=== PATIENT | male | born 1950 | race Caucasian/White ===

== ENCOUNTER 2018-10-17 09:16 | Outpatient (CLI) | payer MEDICARE, SELFPAY ==
[2018-10-17 10:30] LABS: Hemoglobin A1C 6.3 % (4.5-6.2)
[2018-10-17 12:11] LABS: Anion Gap 9.3 mmol/L (3-11); BUN 12 mg/dL (7-18); CO2 28.7 mmol/L (21.0-32.0); CREATININE 0.87 mg/dL (0.70-1.30); Calcium 9.3 mg/dL (8.5-10.1); Chloride 102 mmol/L (98-107); Glucose 130 mg/dL (70-100); Potassium 4.2 mmol/L (3.5-5.1); Sodium 140 mmol/L (136-145)
== END 2018-10-17 09:36 ==
PROVIDERS: PCP Nurse Practitioner Family; Visit Provider Nurse Practitioner Family
DX: R73.01 Impaired fasting glucose (principal); I10 Essential (primary) hypertension
CPT/HCPCS: 36415; 80048; 83036

== ENCOUNTER 2019-04-24 10:52 | Outpatient (CLI) | payer MEDICARE, SELFPAY ==
--- NOTE | 2019-04-24 09:30 | DI.RAD_ITS ---
SYMPTOM/DIAGNOSIS: DORSALGIA M54.9, PARESTHESIAS BILAT HANDS R20.2 CERVICAL SPINE: 04/24 Six views were obtained. There is loss of height of intervertebral disc spaces throughout the cervical region. There is a mild upper cervical kyphosis. There are prominent hypertrophic degenerative changes of the end plates and facet joints. No fracture identified. Neural foramina are not ideally visualized but are likely narrowed at multiple levels bilaterally sparing C2-3 No evidence of fracture CONCLUSION: Severe degenerative changes of the cervical spine.
--- NOTE | 2019-04-24 09:30 | DI.RAD_ITS ---
SYMPTOM/DIAGNOSIS: CHRONIC THORACIC BACK PAIN M54.9, M54.6 OTHER CHRONIC PAIN G89.29 THORACIC SPINE: 04/24 Three views were obtained. There is a minimal biconvex thoracolumbar scoliosis Intervertebral disc spaces are fairly well maintained. No fracture seen. Minimal hypertrophic spurring of the vertebral end plates noted throughout the thoracic region. CONCLUSION: Mild DJD, no other specific finding.
== END 2019-04-24 11:12 ==
PROVIDERS: PCP Nurse Practitioner Family; Visit Provider Nurse Practitioner Family
DX: G89.29 Other chronic pain (principal); M54.6 Pain in thoracic spine; R20.2 Paresthesia of skin; M54.2 Cervicalgia; M47.813 Spondylosis without myelopathy or radiculopathy, cervicothoracic region
CPT/HCPCS: 72050; 72072

== ENCOUNTER 2019-05-05 11:40 | Outpatient (CLI) | payer MEDICARE, SELFPAY ==
[2019-05-05 12:56] LABS: Absolute Basophil Count 0.02 k/cumm (0.0-0.2); Absolute Eosinophil Count 0.06 k/cumm (0.0-0.7); Absolute Monocyte Count 0.56 k/cumm (0.11-0.7); Absolute Neutrophil Count 2.27 k/cumm (1.2-6.7); Basophils % 0.4; Eosinophils % 1.2; HCT 46.6 % (40.0-50.0); HGB 15.7 g/dL (13.5-17.5); Lymphocytes % 41.9; Mean Corp. HGB Concentration 33.7 g/dL (32.0-36.0); Mean Corpuscular Hemoglobin 32.4 pg (27.0-33.0); Mean Corpuscular Volume 96.3 fL (80-95); Mean Platelet Volume 10.4 fL (8.0-11.0); Monocytes % 11.2; Neutrophils % 45.3; Platelet Count 201 x1000/uL (130-400); RBC 4.84 m/cumm (4.50-6.00); RBC Distribution Width 13.3 % (11.8-14.1); White Blood Cell Count 5.01 k/cumm (4.4-10.8)
[2019-05-05 13:42] LABS: TSH (W/Ref FT4) 1.46 uIU/mL (0.358-3.74); Vitamin B12 437 pg/mL (193-986)
[2019-05-06 13:59] LABS: Albumin 56.9 % (55.8-66.1); Total Protein 7.2 g/dl (6.3-8.2)
== END 2019-05-05 12:00 ==
PROVIDERS: PCP Nurse Practitioner Family; Visit Provider Nurse Practitioner Family
DX: R20.2 Paresthesia of skin (principal)
CPT/HCPCS: 36415; 82607; 84165; 84443; 85025

== ENCOUNTER → 2019-05-08 09:47 | Outpatient (BNVA) | payer MEDICARE, SELFPAY | PROVIDERS: Visit Provider Orthopaedic Surgery | DX: Z47.1 Aftercare following joint replacement surgery (principal); Z96.653 Presence of artificial knee joint, bilateral | CPT/HCPCS: 99213 ==

== ENCOUNTER 2020-04-22 21:21 | Outpatient (REF) | payer MEDICARE, SELFPAY ==
[2020-04-22 16:43] LABS: Anion Gap 8.2 mmol/L (3-11); BUN 18 mg/dL (7-18); CO2 25.8 mmol/L (21.0-32.0); CREATININE 1.11 mg/dL (0.70-1.30); Calcium 9.4 mg/dL (8.5-10.1); Chloride 103 mmol/L (98-107); Glucose 97 mg/dL (74-106); Potassium 4.6 mmol/L (3.5-5.1); Sodium 137 mmol/L (136-145)
== END 2020-04-22 21:41 ==
LOC: LBN 21:21
PROVIDERS: PCP Nurse Practitioner Family; Visit Provider Nurse Practitioner Family
DX: I10 Essential (primary) hypertension (principal)
CPT/HCPCS: 80048

== ENCOUNTER 2021-09-07 02:36 | Outpatient (CLI) | payer MEDICARE, SELFPAY ==
[2021-09-07 10:34] LABS: Abs Immature Grans 0.01 10^3/uL (0.0-0.06); Absolute Basophil Count 0.04 10^3/uL (0.0-0.2); Absolute Eosinophil Count 0.03 10^3/uL (0.0-0.7); Absolute Lymphocyte Count 1.88 10^3/uL (1.2-3.4); Absolute Monocyte Count 0.78 10^3/uL (0.1-0.8); Absolute Neutrophil Count 3.26 10^3/uL (1.2-6.7); Basophils % 0.7; Eosinophils % 0.5; HCT 45.6 % (40.0-50.0); HGB 14.9 g/dL (13.5-17.5); Immature Grans % 0.2; Lymphocytes % 31.3; MCH 30.8 pg (27.0-33.0); MCHC 32.7 % (32.0-36.0); MCV 94.4 fL (80-95); MPV 9.9 fL (8.0-11.0); Neutrophils % 54.3; Nucleated RBC 0 %; Platelet Count 204 10^3/uL (130-400); RBC 4.83 10^6/uL (4.36-5.78); RDW 13.2 % (11.8-14.1); RDW-SD 46.6 fL
[2021-09-07 11:05] LABS: BUN 20 mg/dL (7-18); CREATININE 1.1 mg/dL (0.70-1.30); Calcium 8.8 mg/dL (8.5-10.1); Glucose 92 mg/dL (74-106)
[2021-09-07 11:06] LABS: Anion Gap 10.9 mmol/L (3-11); CO2 27.1 mmol/L (21.0-32.0); Chloride 104 mmol/L (98-107); Potassium 4.6 mmol/L (3.5-5.1); Sodium 142 mmol/L (136-145)
== END 2021-09-07 02:37 | disposition home or self-care (01) ==
LOC: LBO 02:36
PROVIDERS: PCP Nurse Practitioner Family; Visit Provider Nurse Practitioner Family
DX: I10 Essential (primary) hypertension (principal); Z86.2 Personal history of diseases of the blood and blood-forming organs and certain disorders involving the immune mechanism; Z51.81 Encounter for therapeutic drug level monitoring
CPT/HCPCS: 36415; 80048; 85025

== ENCOUNTER 2021-09-27 01:54 | Outpatient (CLI) | payer MEDICARE, SELFPAY ==
[2021-09-27] MEDS: Omnipaque 350 MG/ML 100 ML BTL IJ (09:27)
[2021-09-27] MEDS: Normal Saline Flush 10 ML SYR IVP (09:29)
[2021-09-27] MEDS: Breeza Beverage 473 ML BTL PO ×2 (09:30→09:31)
[2021-09-27] MEDS: Omnipaque 350 MG/ML 50 ML BTL PO (09:31)
--- NOTE | 2021-09-27 09:35 | DI.CT_ITS ---
Exam(s) CT ABDOMEN PELVIS W EXAM: CT ABDOMEN PELVIS W CLINICAL HISTORY: RLQ - MID ABD PAIN, R10.31 TECHNIQUE: Imaging Protocol: Axial computed tomography images with coronal and sagittal reformatted images were created and reviewed CONTRAST MATERIAL: Intravenous: Omnipaque 350 Contrast volume: 100 ml Oral: Yes COMPARISON: No exams were available for comparison FINDINGS: ABDOMEN: Lung Bases: Dependent atelectasis. Coronary artery calcification. Liver: Fatty infiltration of the liver. No measurable mass. Portal, Superior Mesenteric, and Splenic Veins: Unremarkable. Gallbladder and Biliary Tract: No radiodense calculus or dilation. Pancreas: Normal density, no abnormal calcifications or inflammatory process. Spleen: Normal. There is a benign round calcification in the spleen. Adrenals: No masses seen. Kidneys: Normal size, contour and axis. Bilateral nephrolithiasis. No hydronephrosis. There is a 1. 6 cm simple cyst in the superior pole of the right kidney. No follow-up is recommended. Abdominal Aorta: Abdominal portion non-dilated. Atherosclerosis. Bowel: No obstruction or bowel wall thickening. No appendicitis. There is diverticulosis of the desc ending and sigmoid colon, but no evidence of acute diverticulitis. There is a moderate size left ing uinal hernia. A short segment of the wall of the sigmoid colon is seen within the neck of the hernia . No obstruction is present. Peritoneal Cavity: No ascites, collection or mesenteric inflammatory response. No free air. Lymph Nodes: Within normal limits. Bones: Within normal limits for the patient's age. There is L5 spondylolysis and grade 1 spondylolis thesis of L5 on S1. Soft Tissues: There is a small fat containing umbilical hernia. PELVIS: Bladder: Symmetric distention, no gross wall thickening. Reproductive Organs: The prostate gland is enlarged and impinges upon the base of the urinary bladder . Lymph Nodes: Within normal limits. Bones: Within normal limits for the patient's age. IMPRESSION: 1. No acute abdominal or pelvic process. 2. Moderate size left inguinal hernia containing a short segment of the wall of the sigmoid colon. N o evidence of obstruction. 3. Colonic diverticulosis, but no evidence of acute diverticulitis. 4. Bilateral nephrolithiasis. No hydronephrosis. 5. Fatty infiltration of the liver. RADIATION DOSE DELIVERED: Total DLP DATA REPOSITORY: All CT scans at this facility are submitted to the National Radiology Data Registry (NRDR) Dose Index Registry (DIR) with the [employer] (ACR). RADIATION OPTIMIZATION: All CT scans at this facility use at least one of these dose optimization te chniques: automated exposure control; mA and/or kV adjustment per patient size (includes targeted exa ms where dose is matched to clinical indication); or iterative reconstruction.
== END 2021-09-27 02:14 ==
PROVIDERS: PCP Nurse Practitioner Family; Visit Provider Nurse Practitioner
DX: R10.31 Right lower quadrant pain (principal); K76.0 Fatty (change of) liver, not elsewhere classified; N20.0 Calculus of kidney; K57.32 Diverticulitis of large intestine without perforation or abscess without bleeding; K40.90 Unilateral inguinal hernia, without obstruction or gangrene, not specified as recurrent
CPT/HCPCS: 74177; J3490; Q9967

== ENCOUNTER → 2021-10-18 07:27 | Outpatient (BNVA) | payer MEDICARE, SELFPAY | PROVIDERS: PCP Nurse Practitioner Family; Referring Provider Nurse Practitioner Family; Visit Provider Surgery | DX: K40.90 Unilateral inguinal hernia, without obstruction or gangrene, not specified as recurrent (principal) | CPT/HCPCS: 99203; 99214 ==

== ENCOUNTER 2021-10-18 15:01 | Outpatient (REF) | payer MEDICARE, SELFPAY ==
[2021-10-18 09:27] LABS: Source Nasal/Nares
[2021-10-18 13:07] LABS: COVID-19 PCR Negative (Negative)
== END 2021-10-18 15:02 | disposition home or self-care (01) ==
LOC: LBN 15:01
PROVIDERS: PCP Nurse Practitioner Family; Visit Provider Surgery
DX: Z20.822 Contact with and (suspected) exposure to COVID-19 (principal); Z01.818 Encounter for other preprocedural examination
CPT/HCPCS: 87635

== ENCOUNTER 2021-10-20 10:55 | Day surgery (SDC) | payer MEDICARE, SELFPAY ==
[2021-10-20] VITALS (8 sets, daily range): BP systolic 109–141; BP diastolic 71–91; PULSE 58–75; RESP 12–16; TEMP 36.3–36.5; O2SAT 94–98; BMI 28.5
--- NOTE | 2021-10-20 10:36 | W.ANESPRE ---
General Info Date of Service Date Performed: 10/20/21 Height: 5 ft 9.5 in Weight: 89.074 kg Body Mass Index (BMI): 28.5 Surgical Procedure: Operation Date: 10/20/21 12:10 Proposed Procedures Side Surgeon p Herniorrhaphy Inguinal w/Mesh Left Lucrecia Carlisle MD Meds Allergies and Home Medications Allergies Allergy/AdvReac Type Severity Reaction Status Date / Time morphine AdvReac Severe Agitation, Verified 10/20/21 11:02 hyper Home Medication Medication Instructions Recorded hydrocortisone 30 gm TOPICAL DAILY PRN PRN 04/22/13 ibuprofen 400 mg PO PRN tab 09/03/13 aspirin [Aspir-81] 81 mg PO DAILY tab 09/30/14 multivitamin 1 ea PO DAILY 01/24/16 amoxicillin 500 mg capsule 2,000 mg PO ONCE #8 cap 12/25/19 lisinopril 10 mg tablet 10 mg PO DAILY #90 tab-cap 07/25/21 Current Visit Medications: Current Medications Generic Name Dose Route Start Last Admin Trade Name Freq PRN Reason Stop Dose Admin Acetaminophen 1,000 mg 10/20/21 06:00 Acetaminophen 500 Mg Tab PO 10/20/21 16:00 PREOP MAINE Celecoxib 200 mg 10/20/21 06:00 Celecoxib 200 Mg Cap PO 10/20/21 16:00 PREOP MAINE Gabapentin 600 mg 10/20/21 06:00 Gabapentin 300 Mg Cap PO 10/20/21 16:00 PREOP MAINE Ringer's Solution 1,000 mls @ 80 mls/hr 10/20/21 06:00 IV 11/18/21 23:59 INFUSION MAINE Cefazolin Sodium/Dextrose 2 gm in 50 mls @ 100 mls/hr 10/20/21 06:00 Ancef Duplex IVPB 10/20/21 16:00 PREOP MAINE IV Miscellaneous Supplies 1 each 10/20/21 06:00 Iv Access IV 11/18/21 23:59 DIRECTED MAINE Sodium Chloride 0 ml 10/20/21 06:00 Normal Saline Flush 10 Ml Syr IV 11/18/21 23:59 PRN PRN Sodium Chloride 0 ml 10/20/21 06:00 Normal Saline 10 Ml Vial IJ 11/18/21 23:59 DIRECTED PRN Sterile Water 0 ml 10/20/21 06:00 Water,Injection,Sterile 10 Ml Vial IJ 11/18/21 23:59 DIRECTED PRN [facility] Active Problems Active Problems: Problem Status Onset Code Left inguinal hernia K40.90 Adult BMI > 30 IFG (impaired fasting glucose) R73.01 Unspecified essential hypertension I10 Medical History Medical History Hyperlipidemia (03/20/08) PCEq risk 18.1% LDL baseline 127; declines statins 09/2017 labwork: 10-year ASCVD risk = ~16.4% --> pt declines statins Osteoarthritis of knee Total right knee replacement done by Dr. Osmel Moreira 05/05/2013. Removal of tibial plateau isacc at the same time for previous surgery. Rosacea (09/03/13) Seborrheic dermatitis of scalp (01/07/14) Tubular adenoma of colon (01/26/16) Ascending colon Surgical History Surgical History Colonoscopy - IV Sedation (01/26/16) Sandhya Carlisle Pathology-Fragments of tubular adenona History of total left knee replacement (TKR) (12/24/95) History of total right knee replacement (TKR) (05/05/13) Dr. Moreira Tobacco Smoking/Tobacco Use Status: Never Passive smoking exposure: No Alcohol Alcohol Intake: never Substance Use Substance use: Never Substance use type: does not use Vital Signs and Lab Results Lab Results Blood Type / Crossmatch: No Data to Display Complete Blood Count: No Data to Display Complete Metabolic Panel: No Data to Display Liver Function Panel: No Data to Display Coagulation Panel: No Data to Display Cardiac Panel: No Data to Display Arterial Blood Gas: No Data to Display Venous Blood Gas: No Data to Display Pancreas Panel: No Data to Display Thyroid Panel: No Data to Display Infectious Disease: Coronavirus (COVID-19)(PCR) Negative (Negative) 10/18/21 08:25 10/18/21 Coronavirus 2019 Source Nasal/Nares 10/18/21 08:25 10/18/21 Blood Cultures: No Data to Display Toxicology Panel: No Data to Display Anesthesia Assessment and Plan Anesthesia History Personal History: PONV Family History: No Family History of Anesthesia Complications Exercise Tolerance Exercise Tolerance: Metabolic Equivalents>4 Pertinent Negatives Pertinent Negatives: No Symptoms of GERD, No Major Cardiovascular Symptoms or Complaints, No Major Pulmonary Symptoms or Complaints and No History of CVA/TIA Cardiac & Pulmonary Exam Cardiac Exam: Normal S1/S2 Heart Sounds Pulmonary Exam: Clear Bilateral Breath Sounds Implantable Cardiac Device Does patient have a Pacemaker or an ICD?: No Airway Exam Known Difficult Airway: No Mallampati Class: 2 Mouth Opening: Normal (> 3cm) Thyromental Distance: Greater than 3 cm Neck Range of Motion: Full ROM Neck Circumference: Normal Teeth Condition: Normal Dentition ASA Classification ASA Score: ASA 2 Emergency Case?: No NPO Status NPO Status: NPO Clears >2 hours, Solids >8 hours Anesthesia Plan Resuscitation Status: Full Code Anesthesia Technique: General Anesthesia Airway Planned: LMA Pain Management: Surgeon and patient request nerve block Monitors Used: Standard Monitors
[2021-10-20] MEDS: Lactated Ringers 1,000 ML 80 ML IV (11:24)
[2021-10-20] MEDS: Acetaminophen 500 MG TAB 1000 MG PO (11:29)
[2021-10-20] MEDS: Celecoxib 200 MG CAP PO (11:30)
[2021-10-20] MEDS: Gabapentin 300 MG CAP 600 MG PO (11:30)
[2021-10-20] MEDS: ceFAZolin 2 GM/50 ML BAG IVPB (11:54)
--- NOTE | 2021-10-20 12:11 | W.ANESNERVE ---
Nerve Block Single Injection Procedure Date and Time Date Performed: 10/20/21 Procedure Start: 12:02 Location Where Procedure Performed Procedure Location: Operating Room Procedure Stop: 12:10 Reason Performed: Postoperative Analgesia Requesting Provider: Lucrecia Carlisle Timeout Performed Timeout Performed: Yes Monitoring Used ECG, Blood Pressure, SpO2, ETCO2 and See EMR for corresponding vital signs Sterility Sterility: Hand Hygiene, Surgical Cap, Surgical Mask, Sterile Gloves and Chlorhexidine Sedation Given During Procedure Sedation Given (Indicate Dose Given): No Sedation given (under GA) Patient Mental Status Patient Mental Status: Performed under general anesthesia Nerve Block 1st Nerve Block: Laterality: Left Block Type: TAP Unilateral Needle / Catheter Used: 100mm SonoPlex II Local Anesthetic Bolus (Indicate Dose Given): Injected in 3-5ml increments after negative blood aspiration, Bupivacaine 0.25% Dose:: 10 and Exparel Dose:: 10 Additives (Indicate Dose Given): None Ultrasound: Sterile probe cover and gel used Ultrasound Image Saved?: Yes Nerve Stimulator: Not Used Paresthesia: None Procedure Tolerated: No Complications Procedure Outcome: Successful Performed By: Mila Ireland Supervised By: Sukhjinder Khalil
--- NOTE | 2021-10-20 12:52 | W.PM.DSUDISC ---
Discharge Plan Disposition Patient Disposition: HOME Condition: Good Discharge Details Reason For Visit: LIH repair Attending Provider: Lucrecia Carlisle Primary Care Provider: Gail Sy Home Meds and New Rx's Prescriptions: Continued lisinopril 10 mg tablet 10 mg PO DAILY Qty: 90 RF: 3 ibuprofen 200 MG tablet 400 mg PO PRN RF: 0 aspirin [Aspir-81] 81 MG tablet,delayed release (DR/EC) 81 mg PO DAILY RF: 0 amoxicillin 500 mg capsule 2,000 mg PO ONCE Qty: 8 RF: 0 hydrocortisone 30 GM cream 30 gm Topical DAILY PRN PRNRF: 0 multivitamin 1 EACH capsule 1 ea PO DAILY RF: 0 Discharge Instructions Additional Instructions: Activity at Home after surgery: 1. Make sure you walk outside at least 4 times per day 2. You should be able to climb a flight of stairs 3. No driving while in pain or taking pain medications 4. No strenuous activity or heavy lifting for 4 weeks (open surgery) Diet, Nutrition, & wound healin. Avoid alcohol until after you are recovered from your surgery 2. Make sure to eat plenty of lean protein (meat, fish, eggs, cottage cheese, beans) 3. Eat a variety of fruits and vegetables. Eat plenty of high fiber foods to avoid constipation. 4. Drink plenty of liquids to stay hydrated and avoid constipation Pain Medications: 1. Tylenol 650mg every 6 hours as needed and Ibuprofen 600 mg every 6 hours as needed. You may alternate between the 2 medications every 3 hours 2. If a narcotic has been prescribed take as directed only for breakthrough pain For Constipation: 1. Take Milk of Magnesia or MiraLax as needed for constipation Other: 1. You may shower daily. Do not scrub the incisions 2. Do not soak the incisions for 1 week 3. You may alternate ice and heat as needed for pain and swelling Wound Care: 1. Keep the incisions clean and dry Please call our office if you develop: 1. Fevers >101.5 2. Nausea or Vomiting 3. Worsening pain 4. Redness and thick discharge from the wounds If after hours please call the Hospital at and ask to speak to the on-call surgeon Referrals: Amanda Mccarty PA [[facility]IST] - 11/04/21 9:30 am Activity:: as above Remove Dressings/Wound Care:: Do Not Remove Diet:: As Tolerated Discharge Orders Discharge Orders: Discharge Order (Routine); Ordered 10/20/21 Ordered By: Lucrecia Carlisle
[2021-10-20] MEDS: Bupivacaine 0.25% Pres-Free 10 ML VIAL (12:55)
[2021-10-20] MEDS: Bupivacaine LIPOSOME/PF 133 MG/10 ML VIAL IJ (12:56)
--- NOTE | 2021-10-20 12:58 | ROE_ITS ---
Date of service: 10/20/21 Time of Service: 12:58 Operative Note Operative Note DATE OF PROCEDURE: 10/20/21 PRE-OP DIAGNOSIS: Left inguinal hernia POST-OP DIAGNOSIS: same (direct and indirect left inguinal hernia) PROCEDURE: Left inguinal hernia repair with mesh SURGEON: Lucrecia Carlisle PROGRAM DEVELOPMENT MANAGER: Amanda Mccarty ANESTHESIA TYPE: General LMA/ETT and Primary Nerve Block Refer to Anesthesia Record ESTIMATED BLOOD LOSS: 15 PATHOLOGY: none sent COMPLICATIONS: None Patient was transported to: same day Patient's condition: stable Implants: Bard Mesh- LOT- [id number] REF- [id number] Findings: Mr. Moreno is a pleasant 71-year-old gentleman with a left inguinal hernia for the last 4 months. He has pain when he is working in his workshop. He also has noted some gas buildup which causes discomfort. He had a CT scan done which showed a short segment of his sigmoid colon within the hernia defect. He is otherwise fairly healthy. We discussed the procedure using a pamphlet. I reviewed the procedure the mesh to be used as well as the complications. He will be Covid tested in the office today for his procedure on . Risks, benefits and complications have been reviewed. Complications include but are not limited to bleeding, infection, injury to vas, vessels and nerves, injury to bowel and adverse reaction to medications. Questions were entertained and answered to their satisfaction and they wished to proceed. Proceed with inguinal hernia repair with mesh I will ask anesthesia to do a TAP block to help with postoperative pain. Procedure Description: After informed consent was obtained the patient was taken to the operating room and placed in a supine position. Monitors and SCDs were applied and a timeout was done. The patient's name, date of , procedure type, procedure site, allergies to medications, preoperative antibiotic, and DVT prophylaxis were all reviewed. Fire risk was assessed. Next anesthesia did a tap block on the left side under ultrasound guidance. Please see their separate dictation. Once anesthesia was done the abdomen was prepped and draped in a sterile surgical fashion. 0.5% Marcaine mixed with exparel was injected into the dermis in the left lower quadrant. An incision was made with a 10 blade in the left lower quadrant. Dissection was done with cautery through the subcutaneous tissues and Hal's fascia down to the external oblique fascia. The external ring was identified and the external oblique fascia was opened sharply through the external ring. The cut fascia was grasped with hemostats the cord struct ures were identified and a Jose drain was placed around them. The ilioinguinal nerve was identified and cut. The cremasteric muscle was dissected away from the cord structures using both cautery and blunt dissection. A hernia sac was identified and removed from the cord structures using blunt dissection. The hernia sac was suture ligated and amputated. The remnant was pushed back into the peritoneum. 2 cord lipomas were removed carefully. A flat piece of mesh was then attached to the lacunar ligament using a 2-0 Prolene double armed suture. The mesh was secured laterally and medially with a 2-0 Prolene, with a running suture. The tails of the mesh were wrapped around the cord structures effectively cinching down the internal ring. Once the mesh was secured the tissues were irrigated with some normal saline. No bleeding was identified. The external oblique fascia was reapproximated using 2-0 Vicryl running suture. The Hal's fascia was reapproximated using interrupted 3-0 Vicryl. The dermis was reapproximated with a running 4-0 Vicryl. The skin was cleaned and dried and skin affix was applied. The patient was woken up and taken back to recovery in stable condition. There were no immediate complications. Sponge, instrument and needle counts were correct at the end of the case x2.
[2021-10-20] MEDS: Scopolamine 1 MG/3 DAYS PATCH TD (13:10)
--- NOTE | 2021-10-20 15:42 | W.ANESPOSTOP ---
Postoperative Evaluation Date, Time and Location Date Performed: 10/20/21 Time Performed: 15:42 Patient Location: Day Surgery Unit Vital Signs Most Recent Imported Vital Signs: Most Recent Vital Signs Temp Pulse Resp BP Pulse Ox 36.4 C L 65 16 133/72 98 10/20/21 14:20 10/20/21 14:20 10/20/21 14:20 10/20/21 14:20 10/20/21 14:20 Pain Score Most Recent Pain Score: Most Recent Pain Score Pain Level 0 10/20/21 14:20 Assessment Mental Status: Awake (Alert & Oriented to Patient Baseline) Airway and Respiratory Function: Patent airway with normal (patient baseline) respiratory exam Cardiovascular Function: Hemodynamically Stable Hydration Status: Adequately Hydrated Nausea & Vomiting: No Nausea or Vomiting Pain: Pt. Denies Any Pain Peripheral Nerve Block: Patient did not receive a nerve block
--- NOTE | 2021-10-20 15:57 | W.ANESPOSTOP ---
Postoperative Evaluation Date, Time and Location Date Performed: 10/20/21 Time Performed: 15:57 Patient Location: Day Surgery Unit Vital Signs Most Recent Imported Vital Signs: Most Recent Vital Signs Temp Pulse Resp BP Pulse Ox 36.4 C L 65 16 133/72 98 10/20/21 14:20 10/20/21 14:20 10/20/21 14:20 10/20/21 14:20 10/20/21 14:20 Most Recent Vital Signs Temp Pulse Resp BP Pulse Ox 36.4 C L 65 16 133/72 98 10/20/21 14:20 10/20/21 14:20 10/20/21 14:20 10/20/21 14:20 10/20/21 14:20 Pain Score Most Recent Pain Score: Most Recent Pain Score Pain Level 0 10/20/21 14:20 Assessment Mental Status: Awake (Alert & Oriented to Patient Baseline) Airway and Respiratory Function: Patent airway with normal (patient baseline) respiratory exam Cardiovascular Function: Hemodynamically Stable Hydration Status: Adequately Hydrated Nausea & Vomiting: No Nausea or Vomiting Pain: Pt. Denies Any Pain Peripheral Nerve Block: Regional nerve block not resolved at time of post operative discharge
== END 2021-10-20 14:45 | disposition home or self-care (01) ==
PROVIDERS: PCP Nurse Practitioner Family; Visit Provider Surgery
PROC: (CPT 49505; principal; 2021-10-20 12:00)
DX: K40.90 Unilateral inguinal hernia, without obstruction or gangrene, not specified as recurrent (principal); I10 Essential (primary) hypertension; R73.01 Impaired fasting glucose
CPT/HCPCS: 49505; 76942; C1781; J0690; J1100; J2405; J2704

== ENCOUNTER → 2021-11-08 08:17 | Outpatient (BNVA) | payer MEDICARE, SELFPAY | PROVIDERS: PCP Nurse Practitioner Family; Referring Provider Nurse Practitioner Family; Visit Provider Surgery | DX: Z12.11 Encounter for screening for malignant neoplasm of colon (principal); Z86.010 Personal history of colon polyps; Z48.815 Encounter for surgical aftercare following surgery on the digestive system ==

== ENCOUNTER 2021-12-05 03:00 | Outpatient (CLI) | payer MEDICARE, SELFPAY ==
[2021-12-05 10:07] LABS: Source Nasal/Nares
[2021-12-05 12:57] LABS: COVID-19 PCR Negative (Negative)
== END 2021-12-05 03:01 | disposition home or self-care (01) ==
LOC: LBO 03:01
PROVIDERS: PCP Nurse Practitioner Family; Visit Provider Surgery
DX: Z20.822 Contact with and (suspected) exposure to COVID-19 (principal)
CPT/HCPCS: 87635

== ENCOUNTER 2021-12-07 06:12 | Day surgery (SDC) | payer MEDICARE, SELFPAY ==
[2021-12-07 06:27] VITALS: BP 118/88; PULSE 92; RESP 16; TEMP 36.6; O2SAT 97
--- NOTE | 2021-12-07 06:27 | W.PREOPHP ---
Assessment and Plan Assessment and plan (1) Encounter for colonoscopy due to history of adenomatous colonic polyps: Status: Acute Assessment and plan: Porter is due for another colonoscopy. His last colonoscopy was in 2016 and he was noted to have an adenomatous polyp. Risks, benefits and complications were reviewed with him. We discussed the procedure as well as the prep. We also discussed COVID testing. Risks, benefits and complications have been reviewed. Complications include but are not limited to bleeding, pain, perforation, missed small lesion/polyp, sore throat, aspiration and adverse reaction to the medications. Questions were entertained and answered to their satisfaction and they wished to proceed. No guarantees were given or implied. Proceed with colonoscopy under sedation History of Present Illness Narrative: Porter is due for a colonoscopy. His last colonoscopy was in 2015 and he was noted to have an adenomatous polyp. Since his hernia repair he has not had any more bowel habit issues. He denies any melena, hematochezia or abnormal weight loss. He has no family history of colon cancer. he had no issues with anesthesia for his hernia. He has had no new health issues since I saw him. Review of Systems Cardiovascular Cardiovascular: Denies chest pain, Denies chest pain at rest, Denies irregular heart rhythm, Denies dyspnea and Denies dyspnea on exertion Respiratory Respiratory: Denies cough, Denies dyspnea and Denies dyspnea on exertion Gastrointestinal Gastrointestinal: Reports as per HPI, Denies dyspepsia and Denies heartburn Genitourinary Genitourinary: Denies dysuria, Denies urinary incontinence and Denies urinary urgency Endocrine Endocrine: Reports system reviewed and no additional complaints, except as documented Hematologic/Lymphatic Hematologic/Lymphatic: Denies easy bruising and Denies lymphadenopathy PFSH All Active Problems (Updated 12/07/21 @ 06:30 by Lucrecia Carlisle MD) Encounter for colonoscopy due to history of adenomatous colonic polyps (Acute) Unspecified essential hypertension (Chronic) FRS 21%; R>L IFG (impaired fasting glucose) (Chronic) Adult BMI > 30 (Chronic) Medical History (Updated 12/07/21 @ 06:30 by Lucrecia Carlisle MD) Hyperlipidemia (03/20/08) PCEq risk 18.1% LDL baseline 127; declines statins 09/2017 labwork: 10-year ASCVD risk = ~16.4% --> pt declines statins Left inguinal hernia s/p repair Osteoarthritis of knee Total right knee replacement done by Dr. Osmel Moreira 05/05/2013. Removal of tibial plateau isacc at the same time for previous surgery. Rosacea (09/03/13) Seborrheic dermatitis of scalp (01/07/14) Tubular adenoma of colon (01/26/16) Ascending colon Surgical History Colonoscopy - IV Sedation (01/26/16) Sandhya Carlisle Pathology-Fragments of tubular adenona History of total left knee replacement (TKR) (12/24/95) History of total right knee replacement (TKR) (05/05/13) Dr. 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 Current gender identity: male What type of physical activity do you participate in: walking and other Details: fernandez Frequency: daily Working smoke detector in home: Yes Fire extinguisher in home: Yes Carbon monox detector in home: Yes Additional Social history: Unable to asses [facility] Allergies and Home Medications Allergies Allergy/AdvReac Type Severity Reaction Status Date / Time morphine AdvReac Severe Agitation, Verified 12/07/21 06:19 hyper Home Medications Medication Instructions Recorded Confirmed Type hydrocortisone 30 gm TOPICAL DAILY PRN PRN 04/22/13 12/05/21 History ibuprofen 400 mg PO PRN tab 09/03/13 12/05/21 History aspirin [Aspir-81] 81 mg PO DAILY tab 09/30/14 12/07/21 History multivitamin 1 ea PO DAILY 01/24/16 12/07/21 History amoxicillin 500 mg capsule 2,000 mg PO ONCE #8 cap 12/25/19 12/07/21 Rx lisinopril 10 mg tablet 10 mg PO DAILY #90 tab-cap 07/25/21 12/07/21 Rx Exam Const General: healthy appearing and comfortable Resp Effort & Inspection: normal respiratory effort Auscultation: clear to auscultation bilaterally Cardio Rate: regular rate Rhythm: regular rhythm Heart Sounds: no click, no gallops and no murmurs
--- NOTE | 2021-12-07 06:30 | W.COLOREPORT ---
Colonoscopy Report Date of procedure: 12/07/21 Pre-op diagnosis general: Hx of colon polyps Post-op diagnosis procedure note: same (diverticulosis, internal hemorrhoids) Procedure: Colonoscopy with polypectomy Surgeon: Lucrecia Carlisle Anesthesia Type: General:No Airway (Sukhjinder Melo, ABHI) Estimated blood loss (mL): 3 Pathology: other (descending polyp, sigmoid polyp x2) Complications: None Disposition: same day Indications: Porter is due for another colonoscopy. His last colonoscopy was in 2016 and he was noted to have an adenomatous polyp. Risks, benefits and complications were reviewed with him. We discussed the procedure as well as the prep. We also discussed COVID testing. Risks, benefits and complications have been reviewed. Complications include but are not limited to bleeding, pain, perforation, missed small lesion/polyp, sore throat, aspiration and adverse reaction to the medications. Questions were entertained and answered to their satisfaction and they wished to proceed. No guarantees were given or implied. Proceed with colonoscopy under sedation Prep: Miralax/Dulcolax Procedure Start Time: 07:21 Procedure End Time: 07:48 Retraction Time: 18 minutes Findings: 3 small polyps mild descending and sigmoid diverticulosis internal hemorrhoids grade 1 Procedure Description: After informed consent was obtained the patient was taken to the procedure room and placed in a left decubitous position. Monitors were applied and a time out was done. The patients name, date of , procedure, allergies to medications and metal in their body was reviewed. The patient was then sedated. Once sedated and comfortable a rectal exam was done. External exam was normal. Internal exam revealed a normal sphincter tone and no palpable masses. The scope was then introduced and retro-flexed. Grade 1 internal hemorrhoidal skin tags were identified on retro-flexion. No polyps or masses were identified on retro-flexion. The scope was then advanced to the cecum without difficulty. The ileocecal valve and appendiceal orifice were identified. The prep was good. The scope was then slowly retracted over 18 minutes back into the rectum. Polyps were removed with cold forceps in the descending colon x1, sigmoid colon x2. There was mild diverticulosis noted in the descending and sigmoid colon. The scope was removed and the patient was woken up and taken back to Same day surgery in stable condition. The patient tolerated the procedure well and there were no immediate complications. Follow up: The patient should follow up most likely in 5 years unless they develop changes in bowel habits or other new gastrointestinal complaints.
--- NOTE | 2021-12-07 06:31 | W.PM.DSUDISC ---
Discharge Plan Disposition Patient Disposition: HOME Condition: Good Discharge Details Reason For Visit: Colonoscopy Attending Provider: Lucrecia Carlisle Primary Care Provider: Gail Sy Home Meds and New Rx's Prescriptions: Continued lisinopril 10 mg tablet 10 mg PO DAILY Qty: 90 RF: 3 ibuprofen 200 MG tablet 400 mg PO PRN RF: 0 aspirin [Aspir-81] 81 MG tablet,delayed release (DR/EC) 81 mg PO DAILY RF: 0 amoxicillin 500 mg capsule 2,000 mg PO ONCE Qty: 8 RF: 0 hydrocortisone 30 GM cream 30 gm Topical DAILY PRN PRNRF: 0 multivitamin 1 EACH capsule 1 ea PO DAILY RF: 0 Discharge Instructions Instructions: Diverticulosis (DC), Colorectal Polyps (DC) Additional Instructions: Findings: 3 small polyps diverticulosis internal hemorrhoids Follow up: most likely 5 years Please call if you develop: fevers >101.5 Nausea or Vomiting Abdominal pain that is not transient Rectal bleeding that is more then a tbsp A hard abdomen and inability to pass gas DAY SURGERY UNIT POST ENDOSCOPY INSTRUCTIONS Instructions for everyone who is given Anesthesia: For your safety, please do the following for the next 24 Hours: a. Do not drive or operate dangerous equipment b. Do not drink alcohol beverages or use any recreational drugs for the first 24 hours or while taking pain medications. The medications in your body may have a reaction that can be dangerous. c. Do not make any important decisions or sign any important papers 1. Generally there are no restrictions on your activity after a day or so has gone by, but you may feel a bit fatigued for a few days. 2. After you arrive home you may have a light meal and return to a normal diet as you can tolerate it without feeling sick to your stomach. 3. After surgery, you may feel pain or discomfort. This should be only transient, but if it persists please contact your doctor. 4. If there are any questions regarding the findings of your procedure, please feel free to contact your doctor. 6. If you are unable to contact your doctor with a problem, contact the hospital at [phone]. 7. Continue all your regular medications unless directed otherwise. I understand the above instructions and have no questions. Signature of Patient or Responsible Adult Escort Date/Time Name of Responsible Adult Escort Signature of Nurse Date/Time Activity:: Activity as Tolerated Diet:: high fiber Discharge Orders Discharge Orders: Discharge Order (Routine); Ordered 12/07/21 Ordered By: Lucrecia Carlisle DS: Diagnosis Discharge Diagnosis (1) Encounter for colonoscopy due to history of adenomatous colonic polyps: Status: Acute
[2021-12-07] MEDS: Lactated Ringers 1,000 ML 80 ML IV (06:40)
--- NOTE | 2021-12-07 07:05 | W.ANESPRE ---
General Info Date of Service Date Performed: 12/07/21 Height: 5 ft 10 in Weight: 86.6 kg Body Mass Index (BMI): 27.3 Surgical Procedure: Operation Date: 12/07/21 07:35 Proposed Procedures Side Surgeon p Colonoscopy Lucrecia Carlisle MD Meds Allergies and Home Medications Allergies Allergy/AdvReac Type Severity Reaction Status Date / Time morphine AdvReac Severe Agitation, Verified 12/07/21 06:19 hyper Home Medication Medication Instructions Recorded hydrocortisone 30 gm TOPICAL DAILY PRN PRN 04/22/13 ibuprofen 400 mg PO PRN tab 09/03/13 aspirin [Aspir-81] 81 mg PO DAILY tab 09/30/14 multivitamin 1 ea PO DAILY 01/24/16 amoxicillin 500 mg capsule 2,000 mg PO ONCE #8 cap 12/25/19 lisinopril 10 mg tablet 10 mg PO DAILY #90 tab-cap 07/25/21 Current Visit Medications: Current Medications Generic Name Dose Route Start Last Admin Trade Name Freq PRN Reason Stop Dose Admin Hyoscyamine Sulfate 0.125 mg 12/07/21 06:32 Hyoscyamine 0.125 Mg Sl/Oral/Chew SL DIRECTED PRN Ringer's Solution 1,000 mls @ 80 mls/hr 12/07/21 06:00 12/07/21 06:40 IV 12/26/21 23:59 80 mls/hr INFUSION MAINE Administration IV Miscellaneous Supplies 1 each 12/07/21 06:00 Iv Access IV 12/26/21 23:59 DIRECTED MAINE Ondansetron HCl 4 mg 12/07/21 06:32 Ondansetron 4 Mg/2 Ml Vial IVP Q4H PRN PRN Nausea / Vomiting Sodium Chloride 0 ml 12/07/21 06:00 Normal Saline Flush 10 Ml Syr IV 12/26/21 23:59 PRN PRN Sodium Chloride 0 ml 12/07/21 06:00 Normal Saline 10 Ml Vial IJ 12/26/21 23:59 DIRECTED PRN Sterile Water 0 ml 12/07/21 06:00 Water,Injection,Sterile 10 Ml Vial IJ 12/26/21 23:59 DIRECTED PRN PFSH Active Problems Active Problems: Problem Status Onset Code Encounter for colonoscopy due to history of adenomatous colonic polyps Z12.11, Z86.010 Unspecified essential hypertension I10 IFG (impaired fasting glucose) R73.01 Adult BMI > 30 Medical History Medical History (Updated 12/07/21 @ 06:30 by Lucrecia Carlisle MD) Hyperlipidemia (03/20/08) PCEq risk 18.1% LDL baseline 127; declines statins 09/2017 labwork: 10-year ASCVD risk = ~16.4% --> pt declines statins Left inguinal hernia s/p repair Osteoarthritis of knee Total right knee replacement done by Dr. Osmel Moreira 05/05/2013. Removal of tibial plateau isacc at the same time for previous surgery. Rosacea (09/03/13) Seborrheic dermatitis of scalp (01/07/14) Tubular adenoma of colon (01/26/16) Ascending colon Surgical History Surgical History Colonoscopy - IV Sedation (01/26/16) Sandhya Carlisle Pathology-Fragments of tubular adenona History of total left knee replacement (TKR) (12/24/95) History of total right knee replacement (TKR) (05/05/13) Dr. Moreira S/P left inguinal hernia repair (~10/20/21) Tobacco Smoking/Tobacco Use Status: Never Passive smoking exposure: No Alcohol Alcohol Intake: never Substance Use Substance use: Never Substance use type: does not use Vital Signs and Lab Results Vital Signs Most Recent Vital Signs in EMR: Most Recent Vital Signs Temp Pulse Resp BP Pulse Ox 36.6 C 92 H 16 118/88 97 12/07/21 06:27 12/07/21 06:27 12/07/21 06:27 12/07/21 06:27 12/07/21 06:27 Lab Results Blood Type / Crossmatch: No Data to Display Complete Blood Count: No Data to Display Complete Metabolic Panel: No Data to Display Liver Function Panel: No Data to Display Coagulation Panel: No Data to Display Cardiac Panel: No Data to Display Arterial Blood Gas: No Data to Display Venous Blood Gas: No Data to Display Pancreas Panel: No Data to Display Thyroid Panel: No Data to Display Infectious Disease: Coronavirus (COVID-19)(PCR) Negative (Negative) 12/05/21 08:45 12/05/21 Coronavirus 2019 Source Nasal/Nares 12/05/21 08:45 12/05/21 Blood Cultures: No Data to Display Toxicology Panel: No Data to Display Anesthesia Assessment and Plan Anesthesia History Personal History: PONV Family History: No Family History of Anesthesia Complications Exercise Tolerance Exercise Tolerance: Metabolic Equivalents>4 Pertinent Negatives Pertinent Negatives: No Symptoms of GERD, No Major Cardiovascular Symptoms or Complaints, No Major Pulmonary Symptoms or Complaints and No History of CVA/TIA Cardiac & Pulmonary Exam Cardiac Exam: Normal S1/S2 Heart Sounds Pulmonary Exam: Clear Bilateral Breath Sounds Implantable Cardiac Device Does patient have a Pacemaker or an ICD?: No Airway Exam Known Difficult Airway: No Mallampati Class: 2 Mouth Opening: Normal (> 3cm) Thyromental Distance: Greater than 3 cm Neck Range of Motion: Full ROM Neck Circumference: Normal Teeth Condition: Normal Dentition ASA Classification ASA Score: ASA 2 Emergency Case?: No NPO Status NPO Status: NPO Clears >2 hours, Solids >8 hours Anesthesia Plan Resuscitation Status: Full Code Anesthesia Technique: General Anesthesia Airway Planned: Natural Airway Monitors Used: Standard Monitors
[2021-12-07 07:07] VITALS: BMI 27.3
--- NOTE | 2021-12-07 07:38 | BOWEL_PTH ---
PATIENT: Porter Moreno LOC: [facility] U#:[id number] AGE/SX: 71/M ROOM: RE12/07/[address]: Lucrecia Carlisle MD : 1950 BED: DIS: 12/07/2021 SPEC #: [id number] RECD: 12/07/21 12:36 STATUS: DWAYNELuis REQ #: [id number] MELISSA: 12/07/21 07:[address]: Lucrecia Carlisle DEPT: Surgical Specimen RECD BY: Lisa Leonardo ENTERED: 12/07/21 12:37 SP TYPE: Bowel OTHR DR: Gail Sy APRN Tissues: 1 - BIOPSY BOWEL 2 - BIOPSY BOWEL Procedures: GROSS AND MICRO LEVEL 4 Comments: [id number]
[2021-12-07 07:57] VITALS: BP 124/73; PULSE 83; RESP 16; TEMP 36.7; O2SAT 95
[2021-12-07 08:00] VITALS: BP 124/73; PULSE 86; RESP 12; TEMPC 36.7; O2SAT 96
--- NOTE | 2021-12-07 08:00 | W.ANESPOSTOP ---
Postoperative Evaluation Date, Time and Location Date Performed: 12/07/21 Time Performed: 08:00 Patient Location: Day Surgery Unit Vital Signs Most Recent Imported Vital Signs: Most Recent Vital Signs Temp Pulse Resp BP Pulse Ox 36.6 C 92 H 16 118/88 97 12/07/21 06:27 12/07/21 06:27 12/07/21 06:27 12/07/21 06:27 12/07/21 06:27 Most Recent Manually Entered Vital Signs: Adult Blood Pressure: 124/73 Heart Rate: 86 Respirations: 12 Oxygen Saturation (%): 96 Temperature (C): 36.7 C Pain Score (0-10 Scale): 0 Pain Score Most Recent Pain Score: Most Recent Pain Score Pain Level 0 12/07/21 06:27 Assessment Mental Status: Awake (Alert & Oriented to Patient Baseline) Airway and Respiratory Function: Patent airway with normal (patient baseline) respiratory exam Cardiovascular Function: Hemodynamically Stable Hydration Status: Adequately Hydrated Nausea & Vomiting: No Nausea or Vomiting Pain: Pt. Denies Any Pain Peripheral Nerve Block: Patient did not receive a nerve block
[2021-12-07] MEDS: Hyoscyamine 0.125 MG SL/ORAL/CHEW SL (08:18)
[2021-12-07 08:28] VITALS: BP 107/58; PULSE 66; RESP 16; TEMP 36.6; O2SAT 96
== END 2021-12-07 08:52 | disposition home or self-care (01) ==
PROVIDERS: PCP Nurse Practitioner Family; Visit Provider Surgery
PROC: 0DJD8ZZ Inspection of Lower Intestinal Tract, Via Natural or Artificial Opening Endoscopic (ICD-10-PCS; CPT 45378; principal; 2021-12-07 07:30)
DX: Z12.11 Encounter for screening for malignant neoplasm of colon (principal); D12.3 Benign neoplasm of transverse colon; K57.30 Diverticulosis of large intestine without perforation or abscess without bleeding; K64.8 Other hemorrhoids; Z86.010 Personal history of colon polyps; E78.5 Hyperlipidemia, unspecified; L71.9 Rosacea, unspecified; Z96.653 Presence of artificial knee joint, bilateral; D12.5 Benign neoplasm of sigmoid colon
CPT/HCPCS: 45380; 88305; J1100; J1200; J1885; J2001; J2405; J3490

== ENCOUNTER 2022-08-04 01:32 | Outpatient (CLI) | payer MEDICARE, SELFPAY ==
[2022-08-04 07:45] LABS: HCT 43.5 % (40.0-50.0); HGB 14.5 g/dL (13.5-17.5); MCH 31.5 pg (27.0-33.0); MCHC 33.3 % (32.0-36.0); MCV 95 fL (80-95); MPV 9.5 fL (8.0-11.0); Platelet Count 191 10^3/uL (130-400); RDW 13.3 % (11.8-14.1); RDW-SD 46.4 fL; WBC 7.84 10^3/uL (4.4-10.8)
[2022-08-04 08:05] LABS: Anion Gap 8.3 mmol/L (3-11); BUN 16 mg/dL (7-18); CO2 28.7 mmol/L (21.0-32.0); CREATININE 1.1 mg/dL (0.70-1.30); Calcium 9.2 mg/dL (8.5-10.1); Chloride 104 mmol/L (98-107); Estimated GFR 70.88 (mL/min/1.73m2); Glucose 107 mg/dL (74-106); Potassium 4.2 mmol/L (3.5-5.1); Sodium 141 mmol/L (136-145)
== END 2022-08-04 01:33 | disposition home or self-care (01) ==
LOC: LBO 01:32
PROVIDERS: Student in an Organized Health Care Education/Training Program; PCP Nurse Practitioner Family; Visit Provider Nurse Practitioner Family
DX: I10 Essential (primary) hypertension (principal); K63.5 Polyp of colon; Z86.2 Personal history of diseases of the blood and blood-forming organs and certain disorders involving the immune mechanism
CPT/HCPCS: 36415; 80048; 85027

== ENCOUNTER 2023-01-16 12:21 | Emergency (ER) | payer MEDICARE, SELFPAY ==
--- NOTE | 2023-01-16 13:43 | DI.RAD_ITS ---
Exam(s) XR THUMB LT EXAM: XR THUMB LT EXAM DATE/TIME: CLINICAL HISTORY: Laceration, R/O FB. TECHNIQUE: 2D digital imaging was performed of the left finger. Four views were obtained. PA/AP, o blique, and lateral views were obtained. COMPARISON: None. FINDINGS: BONES: No acute fracture is present. No bony destructive lesion is seen. JOINTS: No dislocation is present. Degenerative changes are seen in the hand characterized by joint space narrowing and bony hypertrophy. There is chondrocalcinosis in the region of the TFCC. SOFT TISSUE: No radiopaque foreign bodies are seen in the soft tissues. There does appear to be a so ft tissue laceration at the tip of the thumb. IMPRESSION: No fracture, dislocation or radiopaque foreign body. DATA REPOSITORY: RADIATION DOSE DELIVERED:
--- NOTE | 2023-01-16 14:11 | W.ED.GENAD ---
Discharge Plan Disposition Patient Disposition: Home Discharge Details Clinical Impression: Laceration of left thumb Primary Care Provider: Gail Sy ED Provider: Cici Mcmullen Home Meds and New Rx's Prescriptions: New cephalexin 500 mg capsule 500 mg PO BID 7 Days Qty: 14 0RF Rx Instructions: Take 1 capsule by mouth twice daily x7 days No Action lisinopril 10 mg tablet 10 mg PO DAILY Qty: 90 3RF ibuprofen 200 MG tablet 400 mg PO PRN amoxicillin 500 mg capsule 2,000 mg PO ONCE Qty: 8 0RF Rx Instructions: TAKE 4 TABLETS ONE HOUR PRIOR TO DENTAL PROCEDURE hydrocortisone 30 GM cream 30 gm Topical DAILY PRN PRN multivitamin 1 EACH capsule 1 ea PO DAILY Discharge Instructions Instructions: Laceration (ED) Additional Instructions: Please have sutures removed in 7 to 10 days. You may return here to have the sutures removed or be seen by her PCP or urgent care what ever is more convenient. Keep clean and dry. No soaking. After 12 to 24 hours you may wash under running soap and water. Please keep covered when you are working. Return to the ER sooner for any signs of infection including red streaks, drainage, swelling or pain. The numbing medication will wear off in approximately 1 to 2 hours. Take the antibiotic as directed with yogurt or probiotic. Referrals: Gail Sy, [employer] [Primary Care Provider] - 5 days Medical Decision Making See paper chart Digital block performed with 1% lidocaine and 0.5% bupivacaine. Patient tolerated well anesthesia achieved. Laceration was cleaned with chlorhexidine scrub and sterile normal saline. Laceration was repaired with 2 internal subcu Vicryl absorbable sutures four-point now. And 12 four-point 0 sutures simple interrupted. Wound was partially approximated. Patient tolerated well. Nonadherent Xeroform dressing applied. Patient placed on cephalexin to treat empirically for infection due to the almost full-thickness depth of laceration and over the joint. Instructed on having sutures removed in 7 to 10 days. And to return for any signs of infection increased redness, red streaks or concerns. Partial chart is on paper due to downtime. Imaging Data Radiologic Study: Imaging: X-Ray Radiologist's impression: EXAM: XR THUMB LT EXAM DATE/TIME: CLINICAL HISTORY: Laceration, R/O FB. TECHNIQUE: 2D digital imaging was performed of the left finger. Four views were obtained. PA/AP, oblique, and lateral views were obtained. COMPARISON: None. FINDINGS: BONES: No acute fracture is present. No bony destructive lesion is seen. JOINTS: No dislocation is present. Degenerative changes are seen in the hand characterized by joint space narrowing and bony hypertrophy. There is chondrocalcinosis in the region of the TFCC. SOFT TISSUE: No radiopaque foreign bodies are seen in the soft tissues. There does appear to be a soft tissue laceration at the tip of the thumb. IMPRESSION: No fracture, dislocation or radiopaque foreign body. HPI General Date/Time Provider Initiated Documentation: 01/16/23 13:14. Related Data Home Medications Medication Instructions Recorded Confirmed hydrocortisone 1 % topical cream 30 gm topical DAILY PRN PRN 04/22/13 08/09/22 ibuprofen 200 mg tablet 400 mg PO PRN 09/03/13 08/09/22 multivitamin 1 ea PO DAILY 01/24/16 08/09/22 amoxicillin 500 mg capsule 2,000 mg PO ONCE #8 caps 12/25/19 08/09/22 lisinopril 10 mg tablet 10 mg PO DAILY #90 tab-caps 08/09/22 08/09/22 cephalexin 500 mg capsule 500 mg PO BID 7 days #14 caps 01/16/23 Previous Rx's Medication Instructions Recorded amoxicillin 500 mg capsule 2,000 mg PO ONCE #8 caps 12/25/19 lisinopril 10 mg tablet 10 mg PO DAILY #90 tab-caps 08/09/22 cephalexin 500 mg capsule 500 mg PO BID 7 days #14 caps 01/16/23 Allergies Allergy/AdvReac Type Severity Reaction Status Date / Time morphine AdvReac Severe Agitation, Verified 08/09/22 14:59 hyper PFSH All Active Problems (Updated 01/16/23 @ 15:20 by Cici Mcmullen NP) Laceration of left thumb (Acute) Tubular adenoma of colon (Acute) Hyperplastic colon polyp (Acute) Encounter for colonoscopy due to history of adenomatous colonic polyps (Acute) Unspecified essential hypertension (Chronic) FRS 21%; R>L IFG (impaired fasting glucose) (Chronic) Adult BMI > 30 (Chronic) Medical History Hyperlipidemia (03/20/08) PCEq risk 18.1% LDL baseline 127; declines statins 09/2017 labwork: 10-year ASCVD risk = ~16.4% --> pt declines statins Left inguinal hernia s/p repair Osteoarthritis of knee Total right knee replacement done by Dr. Osmel Moreira 05/05/2013. Removal of tibial plateau isacc at the same time for previous surgery. Rosacea (09/03/13) Seborrheic dermatitis of scalp (01/07/14) Tubular adenoma of colon (01/26/16) Ascending colon Surgical History Colonoscopy - IV Sedation (01/26/16) Sandhya Carlisle Pathology-Fragments of tubular adenona History of total left knee replacement (TKR) (12/24/95) History of total right knee replacement (TKR) (05/05/13) Dr. 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 Current gender identity: male What type of physical activity do you participate in: walking and other Details: fernandez Frequency: daily Working smoke detector in home: Yes Fire extinguisher in home: Yes Carbon monox detector in home: Yes Procedures Laceration Laceration 1: Site: hand (Left thumb) Side (If applicable): left Size (cm): 4 Description: flap and irregular Depth: simple, single layer Local Anesthetic: Lidocaine 1% and Bupivicaine 0.5% Pre-repair: wound explored and irrigated extensively Skin layer closed with: nylon Size (cm): 4-0 Number of sutures: 12 Technique: simple, interrupted Subcutaneous layer closed with: vicryl Size: 4-0 Number of sutures: 2 Technique: simple, interrupted
[2023-01-16] MEDS: Cephalexin 500 MG CAP PO (15:27)
--- NOTE | 2023-01-16 15:58 | NUR.NOTE ---
Nursing Note: this RN gave pt take home meds per providers orders
== END 2023-01-16 15:58 | disposition home or self-care (01) ==
PROVIDERS: Emergency Provider Registered Nurse Emergency; PCP Nurse Practitioner Family
DX: S61.012A Laceration without foreign body of left thumb without damage to nail, initial encounter (principal); W31.2XXA Contact with powered woodworking and forming machines, initial encounter
CPT/HCPCS: 12002; 90471; 73140; 99283; 99284

== ENCOUNTER 2023-01-29 21:23 | Outpatient (REF) | payer MEDICARE, SELFPAY | END 2023-01-29 21:24 | disposition home or self-care (01) | LOC: LBN 21:23 | PROVIDERS: PCP Nurse Practitioner Family; Visit Provider Family Medicine | DX: L08.89 Other specified local infections of the skin and subcutaneous tissue; S61.012D Laceration without foreign body of left thumb without damage to nail, subsequent encounter | CPT/HCPCS: 87070; 87205 ==